=== PATIENT | female | born 1965 | race African-American/Black ===

== ENCOUNTER → 2016-08-28 | Outpatient (CLI) | payer OTHER ==
[~2016-08-28] MED LIST: OMNIPAQUE 350 MG/ML, 100ML BOTTLE ONE
== END | disposition home or self-care (01) ==
LOC: CFH 09:09
PROVIDERS: ATTEND Nurse Practitioner Primary Care
DX: E04.2 Nontoxic multinodular goiter (principal)
CPT/HCPCS: 70491; 82565; Q9967

== ENCOUNTER 2016-12-23 17:05 | Emergency (ER) | payer OTHER ==
[~2016-12-23] VITALS: Ht 177.8 cm; Wt 102.3 kg
[2016-12-23] MEDS ORDERED: ONDANSETRON 2MG/ML, 2ML IVPush ONE (17:30)
[2016-12-23] MEDS ORDERED: SODIUM CHLORIDE FLUSH 10ML SYR IVF ONE (17:30)
[2016-12-23] MEDS ORDERED: SODIUM CHLORIDE 0.9% 1,000ML IVBOLUS ONE ×3 (17:30→21:00)
[2016-12-23] MEDS ORDERED: MORPHINE SULFATE 4 MG/ML, 1ML ONE ×2 (17:45→18:45)
[2016-12-23] MEDS ORDERED: ONDANSETRON 2MG/ML, 2ML ONE (17:45)
[2016-12-23 17:58] LABS: HEMOGLOBIN 13.7 g/dL (11.7-16.4); WHITE BLOOD COUNT 6.4 x10^3/uL (3.4-10)
[2016-12-23] MEDS ORDERED: morphine SULFATE 10 MG/ML, 1ML IVPush ONE (18:00)
[2016-12-23 18:09] LABS: BLOOD UREA NITROGEN 12 mg/dL (7-18)
[2016-12-23 18:11] LABS: ASPARTATE AMINO TRANSFERASE 21 U/L (15-37)
[2016-12-23] MEDS ORDERED: MORPHINE SULFATE 4 MG/ML, 1ML IVPush PRN (19:00)
[2016-12-23] MEDS ORDERED: OMNIPAQUE 350 MG/ML, 100ML BOTTLE ONE (20:19)
[2016-12-23 21:32] VITALS: BP 111/74
== END 2016-12-23 21:34 | disposition home or self-care (01) ==
LOC: ED 21:04
DX: R10.11 Right upper quadrant pain (principal); R10.30 Lower abdominal pain, unspecified; R11.2 Nausea with vomiting, unspecified
CPT/HCPCS: 36415; 74177; 76700; 80053; 81003; 83690; 85025; 85610; 96361; 96374; 96375; 96376; 99285; J2270; J2405; J7030; Q9967

== ENCOUNTER → 2017-01-01 | Outpatient (CLI) | payer OTHER | END | disposition home or self-care (01) | LOC: CFH 09:31 | PROVIDERS: ATTEND Nurse Practitioner Primary Care | DX: D25.9 Leiomyoma of uterus, unspecified (principal) | CPT/HCPCS: 74177; Q9967 ==

== ENCOUNTER 2017-10-15 10:02 | Emergency (ER) | payer OTHER ==
[~2017-10-15] VITALS: Ht 177.8 cm; Wt 99.5 kg
[2017-10-15] MEDS ORDERED: SODIUM CHLORIDE 0.9% 1,000 ML IV ONE (10:41)
[2017-10-15] MEDS ORDERED: ONDANSETRON ODT 4 MG PO ONE (11:00)
[2017-10-15] MEDS ORDERED: FAMOTIDINE 20 MG/2 ML IVP ONE (11:00)
[2017-10-15] MEDS ORDERED: SODIUM CHLORIDE 0.9% 1,000ML IVBOLUS ONE (11:00)
[2017-10-15] MEDS ORDERED: MORPHINE SULFATE 4 MG/ML, 1ML IVPush PRN (11:00)
[2017-10-15] MEDS ORDERED: SODIUM CHLORIDE FLUSH 10ML SYR IVF ONE (11:00)
[2017-10-15 11:12] LABS: MICROSCOPIC NOT IND
[2017-10-15] MEDS ORDERED: MORPHINE SULFATE 4 MG/ML, 1ML ONE (11:22)
[2017-10-15] MEDS ORDERED: ONDANSETRON ODT 4 MG ONE (11:22)
[2017-10-15] MEDS ORDERED: FAMOTIDINE 20 MG/2 ML ONE (11:22)
[2017-10-15 11:25] LABS: MEAN CORPUSCULAR HEMOGLOBIN 30.8 pg (27.0-34.8); MEAN CORPUSCULAR HGB CONC 33.7 g/dL (32.4-35.8); MEAN CORPUSCULAR VOLUME 91.4 fL (80-100); MEAN PLATELET VOLUME 8.9 fL (7.4-10.4); PLATELET COUNT 279 x10^3/uL (130-400); RED BLOOD COUNT 4.75 x10^6/uL (3.82-5.3); RED CELL DISTRIBUTION WIDTH 13.6 % (9.6-15.2)
[2017-10-15 11:27] LABS: CULTURE INDICATED? NO
[2017-10-15 11:32] LABS: ALBUMIN 3.5 g/dL (3.4-5.0); ANION GAP 7 mmol/L (5-15); CALCIUM 9.6 mg/dL (8.5-10.1); CHLORIDE 104 mmol/L (98-107)
[2017-10-15 11:37] LABS: ALANINE AMINOTRANSFERASE 30 U/L (12-78); ALKALINE PHOSPHATASE 107 U/L (45-117); BILIRUBIN,TOTAL 0.4 mg/dL (0.2-1.0); CREATININE 1.27 mg/dL (0.55-1.02); MD YES; TOTAL PROTEIN 10.1 g/dL (6.4-8.2)
[2017-10-15 11:39] LABS: LYMPH#(MANUAL) 2.43 x10^3/uL (1-3.4); LYMPHS% (MANUAL) 45 % (22-44); MONOS#(MANUAL) 0.76 x10^3/uL (0.3-2.7); MONOS% (MANUAL) 14 % (2-9); REACTIVE LYMPHS # (MANUAL) 0.11 x10^3/uL (0-0); REACTIVE LYMPHS % (MANUAL) 2 % (0-0); SEG#(MANUAL) 2.11 x10^3/uL (1.8-6.8); SEGS% (MANUAL) 39 % (42-75)
[2017-10-15 11:40] LABS: <PLATELET ESTIMATE> ADEQUATE; <PLT MORPHOLOGY> NORMAL PLT MORPH; <RBC MORPHOLOGY> NORMAL
[2017-10-15] MEDS ORDERED: DIPHENHYDRAMINE 50 MG/ML, 1ML ONE (11:41)
[2017-10-15] MEDS ORDERED: DIPHENHYDRAMINE 50 MG/ML, 1ML IVPush ONE (12:00)
[2017-10-15 14:16] VITALS: BP 115/81
== END 2017-10-15 14:24 | disposition home or self-care (01) ==
LOC: ED 14:02
DX: K52.9 Noninfective gastroenteritis and colitis, unspecified (principal); E78.5 Hyperlipidemia, unspecified; I10 Essential (primary) hypertension; E03.9 Hypothyroidism, unspecified; G43.009 Migraine without aura, not intractable, without status migrainosus
CPT/HCPCS: 36415; 76700; 80053; 81003; 83690; 85025; 93005; 96361; 96374; 96375; 99285; J7030; Q0162; S0028

== ENCOUNTER 2019-05-20 20:59 | Emergency (ER) | payer OTHER ==
[~2019-05-20] VITALS: Ht 177.8 cm; Wt 105.2 kg
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
[2019-05-20] MEDS ORDERED: DIPHENHYDRAMINE 50 MG/ML, 1ML IVPush ONE (22:00)
[2019-05-20] MEDS ORDERED: KETOROLAC 30 MG/1 ML IVPush ONE (22:00)
[2019-05-20] MEDS ORDERED: PROCHLORPERAZINE 5 MG/ML, 2ML IVPush ONE (22:00)
[2019-05-20] MEDS ORDERED: PROCHLORPERAZINE 5 MG/ML, 2ML ONE (22:09)
[2019-05-20] MEDS ORDERED: DIPHENHYDRAMINE 50 MG/ML, 1ML ONE (22:09)
[2019-05-20] MEDS ORDERED: KETOROLAC 30 MG/1 ML ONE (22:09)
--- NOTE | 2019-05-20 22:26 | NUR ---
medicated per emar
--- NOTE | 2019-05-20 22:30 | NUR ---
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 TOOK HOME FIORECET WITH NO RELIEF OTHERWISE NEURO EXAM UNREMARKABLE
--- NOTE | 2019-05-20 22:56 | NUR ---
REPORTS VELAZQUEZ IMPROVED TO 06/27. LEFT ARM NUMBNESS NOW GONE TO D/C IN CARE OF FRIEND
[2019-05-20 23:14] VITALS: BP 142/88
== END 2019-05-20 23:17 | disposition home or self-care (01) ==
LOC: ED 22:33
DX: S06.0X0A Concussion without loss of consciousness, initial encounter (principal); G43.009 Migraine without aura, not intractable, without status migrainosus; I10 Essential (primary) hypertension; E03.9 Hypothyroidism, unspecified; E78.5 Hyperlipidemia, unspecified; Z90.89 Acquired absence of other organs; Z90.710 Acquired absence of both cervix and uterus; X58.XXXA Exposure to other specified factors, initial encounter; Y93.89 Activity, other specified; Y92.89 Other specified places as the place of occurrence of the external cause; Y99.8 Other external cause status
CPT/HCPCS: 70450; 96374; 96375; 99284; J0780; J1200; J1885

== ENCOUNTER 2019-05-23 16:24 | Emergency (ER) | payer OTHER ==
[~2019-05-23] VITALS: Ht 177.8 cm; Wt 105.2 kg
[2019-05-23] MEDS ORDERED: BUTORPHANOL 1 MG/ML, 1ML IM ONE (18:00)
[2019-05-23] MEDS ORDERED: DIPHENHYDRAMINE 25 MG CAPSULE PO ONE (18:00)
[2019-05-23] MEDS ORDERED: METOCLOPRAMIDE 10MG TABLET PO ONE (18:00)
[2019-05-23] MEDS ORDERED: METOCLOPRAMIDE 10MG TABLET ONE (18:16)
[2019-05-23] MEDS ORDERED: DIPHENHYDRAMINE 25 MG CAPSULE ONE (18:16)
--- NOTE | 2019-05-23 18:48 | NUR ---
Panchito arshad in [facility] - 05/23/19 at 1849 by EMY report given to prakash
--- NOTE | 2019-05-23 18:50 | NUR ---
report given to prakash
--- NOTE | 2019-05-23 18:58 | NUR ---
REPORT RECIEVED FROM DONNIE PATEL. PLAN OF CARE DISCUSSED.
--- NOTE | 2019-05-23 19:03 | NUR ---
PATIENT STATES VELAZQUEZ IS BETTER, CURRENTLY RATED 2/10. STATES MILD PRESSURE AT FRONT OF HEAD
[2019-05-23 19:35] VITALS: BP 146/92
--- NOTE | 2019-05-23 19:35 | NUR ---
Patient/Caregiver given discharge instructions and they have confirmed that they understand the instructions. Patient ambulatory with steady gait. MD to fill out workers comp form
== END 2019-05-23 20:02 | disposition home or self-care (01) ==
LOC: ED 18:30
DX: G43.009 Migraine without aura, not intractable, without status migrainosus (principal); E78.5 Hyperlipidemia, unspecified; I10 Essential (primary) hypertension; E03.9 Hypothyroidism, unspecified; Z90.49 Acquired absence of other specified parts of digestive tract; Z90.710 Acquired absence of both cervix and uterus
CPT/HCPCS: 96372; 99283; J0595; Q0163

== ENCOUNTER → 2020-09-11 | Outpatient (CLI) | payer OTHER | END | disposition home or self-care (01) | LOC: RAD 10:21 | PROVIDERS: ATTEND Internal Medicine Gastroenterology | DX: K30 Functional dyspepsia (principal); K31.7 Polyp of stomach and duodenum; R11.0 Nausea | CPT/HCPCS: 78264; A9541 ==

== ENCOUNTER → 2020-11-02 | Outpatient (CLI) | payer OTHER | END | disposition home or self-care (01) | LOC: CFH 08:41 | PROVIDERS: ATTEND Nurse Practitioner Primary Care | DX: Z12.31 Encounter for screening mammogram for malignant neoplasm of breast (principal) | CPT/HCPCS: 77063; 77067 ==